=== PATIENT | female | born 1960 | race Caucasian/White ===

== ENCOUNTER 2016-11-02 02:58 | Emergency (ER) | payer OTHER ==
[2016-11-02] MEDS ORDERED: KETOROLAC 60 MG/2 ML VIAL IM ONE (03:34)
[2016-11-02] MEDS ORDERED: DILAUDID 1 MG/ML AMP ONE ×2 (03:34→04:33)
[2016-11-02] MEDS ORDERED: SODIUM CHLORIDE 0.9% 500 ML IV ONE (08:20)
[2016-11-02] MEDS ORDERED: ONDANSETRON 4 MG VIAL ONE (08:20)
[2016-11-02] MEDS ORDERED: MORPHINE 4 MG/ML SYR ONE (08:20)
== END 2016-11-02 06:14 | disposition home or self-care (01) ==
LOC: ER 02:58
DX: S39.012A Strain of muscle, fascia and tendon of lower back, initial encounter (principal); G89.11 Acute pain due to trauma; M54.41 Lumbago with sciatica, right side; X50.0XXA Overexertion from strenuous movement or load, initial encounter; Y92.129 Unspecified place in nursing home as the place of occurrence of the external cause; Y99.0 Civilian activity done for income or pay
CPT/HCPCS: 96372